=== PATIENT | female | born 1965 | race American Indian/Alaskan Native ===

== ENCOUNTER 2019-05-15 12:25 | Emergency (ER) | payer SELFPAY ==
--- NOTE | 2019-05-15 12:34 | Event Note ---
ED Screening Note ED Screening Note: states she is out of her high blood pressure medication lisinopril 10 mg daily states she has not taken it in a month no symptoms currently no LO, no CP, no palpitations, no vision changes, no numbness, no weakness
--- NOTE | 2019-05-15 12:36 | Emergency Department Report ---
ED Recheck HPI - General Chief Complaint: High BP Stated Complaint: HIGH BLOOD PRESSURE Time Seen by Provider: 05/15/19 12:31 Source: patient Mode of arrival: Ambulatory Limitations: No Limitations - History of Present Illness Initial Comments: pt is a 53 yo female who presents to the ED stating she is out of her high blood pressure medication. pt states that she takes lisinopril 10 mg daily. pt states she has not taken it in a month. she states she moved from [place] of town and has not established a primary care doctor yet. she denies any symptoms currently. pt denies any LO, no CP, no palpitations, no vision changes, no numbness, no weakness. pt states she also takes gabapentin due to a carpal tunnel surgery which she has neuropathy, advised pt that we could not refill the gabapentin. - Related Data Previous Rx's Medication Instructions Recorded Last Taken Type Lisinopril [Zestril TAB] 10 mg PO QDAY #30 tablet 05/15/19 Unknown Rx Allergies Allergy/AdvReac Type Severity Reaction Status Date / Time No Known Allergies Allergy Verified 05/15/19 12:28 ED Review of Systems ROS: Stated complaint: HIGH BLOOD PRESSURE Other details as noted in HPI Comment: All other systems reviewed and negative ED Past Medical Hx - Past Medical History Previous Medical History?: Yes Hx Hypertension: Yes - Surgical History Past Surgical History?: No - Social History Smoking Status: Never Smoker Substance Use Type: None - Medications Home Medications: Home Medications Medication Instructions Recorded Confirmed Last Taken Type Lisinopril [Zestril TAB] 10 mg PO QDAY #30 tablet 05/15/19 Unknown Rx ED Physical Exam - General Limitations: No Limitations General appearance: alert, in no apparent distress - Head Head exam: Present: atraumatic, normocephalic - Eye Eye exam: Present: normal appearance - ENT ENT exam: Present: mucous membranes moist - Respiratory Respiratory exam: Absent: respiratory distress - Neurological Exam Neurological exam: Present: alert, oriented X3 - Psychiatric Psychiatric exam: Present: normal affect, normal mood - Skin Skin exam: Present: warm, dry, intact ED Course Vital Signs 05/15/19 12:31 Temperature 97.9 F Pulse Rate 74 Respiratory 18 Rate Blood Pressure 160/100 O2 Sat by Pulse 98 Oximetry ED Recheck [facility] - Medical Decision Making pt is a 53 yo female who presents to the ED stating she is out of her high blood pressure medication. pt states that she takes lisinopril 10 mg daily. pt states she has not taken it in a month. she states she moved from out of town and has not established a primary care doctor yet. she denies any symptoms currently. pt denies any LO, no CP, no palpitations, no vision changes, no numbness, no weak ness. pt states she also takes gabapentin due to a carpal tunnel surgery which she has neuropathy, advised pt that we could not refill the gabapentin. vitals with blood pressure at 160/100, otherwise vitals normal. pt given 1 month refill of her lisinopril. discussed with pt that she needed to see a primary care doctor in the next 3 days to have routine labs. advised pt to please take medication as prescribed. please see a primary care provider in the next 3 days, you need to have routine lab testing and to have your blood pressure regularly monitored by your primary care physician. it is very important you see a primary care doctor for management of this chronic disease. please eat a low sodium diet, drink plenty of water, and incorporate daily exercise. please keep a blood pressure log and take your blood pressure three times a day and take to your primary care doctor. return to the emergency room for any new or worsening symptoms. future refills of your medication will need to be through a primary care provider. Critical care attestation.: If time is entered above; I have spent that time in minutes in the direct care of this critically ill patient, excluding procedure time. ED Disposition Clinical Impression: Medication refill Disposition: [id number] TO HOME OR SELFCARE Is pt being admited?: No Does the pt Need Aspirin: No Condition: Stable Instructions: Chronic Hypertension (ED) Additional Instructions: please take medication as prescribed. please see a primary care provider in the next 3 days, you need to have routine lab testing and to have your blood pressure regularly monitored by your primary care physician. it is very important you see a primary care doctor for management of this chronic disease. please eat a low sodium diet, drink plenty of water, and incorporate daily exercise. please keep a blood pressure log and take your blood pressure three times a day and take to your primary care doctor. return to the emergency room for any new or worsening symptoms. future refills of your medication will need to be through a primary care provider. Prescriptions: Lisinopril [Zestril TAB] 10 mg PO QDAY #30 tablet Referrals: [facility] [place] [Outside] - 3-5 Days [facility] [Outside] - 3-5 Days [facility] [Provider Group] - 3-5 Days Forms: Work/School Release Form(ED) Time of Disposition: 12:36 Print Language: TRISTANIAN
[2019-05-15 13:26] VITALS: BP 169/100
== END 2019-05-15 13:03 | disposition home or self-care (01) ==
LOC: ED 12:25
DX: I10 Essential (primary) hypertension (principal); Z76.0 Encounter for issue of repeat prescription
CPT/HCPCS: 99282